=== PATIENT | female | born 1990 | race Caucasian/White ===

== ENCOUNTER 2023-08-06 15:51 | Observation (INO) ==
[2023-08-06] MEDS ORDERED: IOPAMIDOL 100 ML BOTTLE IV ONE (15:52)
[2023-08-06] MEDS: 0.9 % SODIUM CHLORIDE 1,000 ML IV ONE (18:08)
[2023-08-06] MEDS: HYDROmorphone 1 MG/ML SYRINGE IV ONE ×3 (18:08→20:45)
[2023-08-06] MEDS: ONDANSETRON 4 MG/2 ML VIAL IV ONE ×2 (18:08→19:13)
[2023-08-06 18:12] LABS: Basophils # (Auto) 0.03 K/mcL (0.00-0.30); Basophils % (Auto) 0.4 % (0.0-2.0); Eosinophils # (Auto) 0.07 K/mcL (0.00-0.70); Hematocrit 36.5 % (34.1-44.9); Hemoglobin 11.9 g/dL (11.2-15.7); Lymphocytes # (Auto) 1.61 K/mcL (1.50-4.80); Lymphocytes % (Auto) 22.5 % (15.5-49.0); Mean Cell Volume 87.3 fL (80.0-100.0); Mean Corpuscular HGB Conc 32.6 g/dL (31.0-36.0); Mean Platelet Volume 9.5 fL (8.8-12.5); Monocytes # (Auto) 0.57 K/mcL (0.10-0.90); Monocytes % (Auto) 7.9 % (1.0-12.0); Neutrophils % (Auto) 68.1 % (38.0-78.0); Platelet Count 369 K/mcL (140-440); RBC 4.18 M/mcL (3.59-5.38); Red Cell Distribution Width 12.6 % (11.5-14.5); WBC 7.2 K/mcL (4.5-11.0)
[2023-08-06 18:28] LABS: ALT/SGPT 17 U/L (<40); AST/SGOT 13 U/L (<32); Albumin 4.1 gm/dL (3.2-5.2); Albumin/Globulin Ratio 1.5 (1.0-2.3); Alkaline Phosphatase 96 U/L (39-117); Bilirubin,Total 0.3 mg/dL (0.1-1.0); Blood Urea Nitrogen 6 mg/dL (6-20); Carbon Dioxide 22 mmol/L (22-30); Chloride 104 mmol/L (96-108); Globulin 2.8 gm/dL (2.2-3.7); Glomerular Filtration Rate 120; Glucose 85 mg/dL (70-105)
[2023-08-06] MEDS ORDERED: PROMETHAZINE 25 MG/ML VIAL IV PRN (19:49)
[2023-08-06 20:04] LABS: Appearance,Urine Clear (Clear); Bilirubin,Urine Negative (Negative); Color,Urine Yellow; Culture Indicated,Urine No; Glucose,Urine (UA) Negative (Negative); Ketones,Urine Negative (Negative); Leukocyte Esterase,Urine Negative /uL (Negative); Nitrate,Urine Negative (Negative); PH,Urine 5.5 (5.0-9.0); Protein,Urine Negative (Negative); Urine Blood Negative ery/mcL (Negative); Urobilinogen,Urine Normal
[2023-08-06 21:09] LABS: Prothrombin Time 13.3 sec (11.9-14.5)
[2023-08-06] MEDS: ONDANSETRON 4 MG/2 ML VIAL IV PRN (21:57)
[2023-08-06] MEDS: 0.9 % SODIUM CHLORIDE 1,000 ML IV SCH (22:37)
[2023-08-06] MEDS: ACETAMINOPHEN 1,000 MG/100 ML BAG IV PRN (23:09)
[2023-08-06] MEDS: PIPERACILLIN SODIUM/TAZOBACTAM 3.375 GM in DEXTROSE 5% IN WATER 100 ML IV SCH (23:39)
[2023-08-07] MEDS: HYDROmorphone 1 MG/ML SYRINGE IV PRN (01:14)
[2023-08-07] MEDS: HYDROmorphone 1 MG/ML SYRINGE ONE ×2 (01:21→07:50)
[2023-08-07 05:31] LABS: Basophils # (Auto) 0.04 K/mcL (0.00-0.30); Basophils % (Auto) 0.8 % (0.0-2.0); Eosinophils # (Auto) 0.08 K/mcL (0.00-0.70); Eosinophils % (Auto) 1.6 % (0.0-7.0); Hematocrit 35.1 % (34.1-44.9); Hemoglobin 11.3 g/dL (11.2-15.7); Lymphocytes # (Auto) 1.54 K/mcL (1.50-4.80); Lymphocytes % (Auto) 30.7 % (15.5-49.0); Mean Cell Volume 90.9 fL (80.0-100.0); Mean Corpuscular HGB Conc 32.2 g/dL (31.0-36.0); Mean Platelet Volume 9.8 fL (8.8-12.5); Monocytes # (Auto) 0.42 K/mcL (0.10-0.90); Monocytes % (Auto) 8.4 % (1.0-12.0); Neutrophils % (Auto) 58.1 % (38.0-78.0); Platelet Count 333 K/mcL (140-440); RBC 3.86 M/mcL (3.59-5.38); Red Cell Distribution Width 12.5 % (11.5-14.5)
[2023-08-07 05:43] LABS: ALT/SGPT 7 U/L (<40); AST/SGOT 14 U/L (<32); Albumin 3.6 gm/dL (3.2-5.2); Albumin/Globulin Ratio 1.6 (1.0-2.3); Alkaline Phosphatase 85 U/L (39-117); Bilirubin,Direct < 0.2 mg/dL (0-0.3); Bilirubin,Total 0.3 mg/dL (0.1-1.0); Blood Urea Nitrogen 6 mg/dL (6-20); Calcium 8.1 mg/dL (8.6-10.4); Carbon Dioxide 21 mmol/L (22-30); Chloride 105 mmol/L (96-108); Globulin 2.3 gm/dL (2.2-3.7); Glomerular Filtration Rate 120; Glucose 97 mg/dL (70-105); Lactate Dehydrogenase 112 U/L (135-225); Phosphorous 3.3 mg/dL (2.5-4.5); Triglycerides 128 mg/dL (<150); Uric Acid 3.1 mg/dL (2.5-8.0)
[2023-08-07] MEDS: PANTOPRAZOLE 40 MG VIAL IV SCH (10:04)
[2023-08-07] MEDS ORDERED: fentaNYL 100 MCG/2 ML VIAL IV PRN (12:01)
[2023-08-07] MEDS ORDERED: NALOXONE HCL 0.4 MG/ML VIAL IV PRN ×2 (12:01→16:27)
[2023-08-07] MEDS ORDERED: IPRATROPIUM/ALBUTEROL 3 ML AMPUL.NEB NEB PRN ×2 (12:01→16:27)
[2023-08-07] MEDS ORDERED: ONDANSETRON 4 MG/2 ML VIAL IV PRN ×2 (12:01→16:27)
[2023-08-07] MEDS: PIPERACILLIN SODIUM/TAZOBACTAM 3.375 GM in DEXTROSE 5% IN WATER 100 ML IV SCH (12:08)
[2023-08-07] MEDS ORDERED: fentaNYL 100 MCG/2 ML VIAL ONE (15:33)
[2023-08-07] MEDS ORDERED: ROCURONIUM 10 MG/ML ML IV ONE (15:33)
[2023-08-07] MEDS ORDERED: PROPOFOL 200 MG/20 ML VIAL IV ONE (15:33)
[2023-08-07] MEDS ORDERED: ONDANSETRON 4 MG/2 ML VIAL ONE (15:33)
[2023-08-07] MEDS ORDERED: HYDROmorphone 0.5 MG/0.5 ML SYRINGE IV PRN (16:27)
[2023-08-07] MEDS ORDERED: SUGAMMADEX SODIUM 200 MG/2 ML VIAL IV ONE (16:41)
[2023-08-07] MEDS: fentaNYL 100 MCG/2 ML VIAL IV PRN (17:04)
[2023-08-07] MEDS: 0.9 % SODIUM CHLORIDE 1,000 ML IV SCH (17:53)
[2023-08-07] MEDS: LACTATED RINGERS 1,000 ML IV SCH ×2 (21:09→22:14)
[2023-08-08] MEDS: oxyCODONE IR 5 MG TABLET PO PRN (03:08)
[2023-08-08 06:06] LABS: Basophils # (Auto) 0.06 K/mcL (0.00-0.30); Eosinophils # (Auto) 0.19 K/mcL (0.00-0.70); Hematocrit 33.5 % (34.1-44.9); Hemoglobin 10.7 g/dL (11.2-15.7); Lymphocytes # (Auto) 1.18 K/mcL (1.50-4.80); Lymphocytes % (Auto) 18.9 % (15.5-49.0); Mean Cell Volume 90.3 fL (80.0-100.0); Mean Corpuscular HGB Conc 31.9 g/dL (31.0-36.0); Monocytes # (Auto) 0.46 K/mcL (0.10-0.90); Monocytes % (Auto) 7.4 % (1.0-12.0); Neutrophils % (Auto) 69.5 % (38.0-78.0); Platelet Count 325 K/mcL (140-440); RBC 3.71 M/mcL (3.59-5.38); Red Cell Distribution Width 12.3 % (11.5-14.5); WBC 6.2 K/mcL (4.5-11.0)
[2023-08-08 06:41] LABS: ALT/SGPT 8 U/L (<40); AST/SGOT 13 U/L (<32); Albumin 3.4 gm/dL (3.2-5.2); Albumin/Globulin Ratio 1.5 (1.0-2.3); Alkaline Phosphatase 94 U/L (39-117); Bilirubin,Direct < 0.2 mg/dL (0-0.3); Bilirubin,Total 0.2 mg/dL (0.1-1.0); Blood Urea Nitrogen 4 mg/dL (6-20); Carbon Dioxide 21 mmol/L (22-30); Chloride 108 mmol/L (96-108); Globulin 2.3 gm/dL (2.2-3.7); Glomerular Filtration Rate 127; Glucose 102 mg/dL (70-105); Lactate Dehydrogenase 120 U/L (135-225); Phosphorous 2.4 mg/dL (2.5-4.5); Triglycerides 129 mg/dL (<150); Uric Acid 2.4 mg/dL (2.5-8.0)
== END 2023-08-08 14:15 | disposition home or self-care (01) ==
LOC: ED 15:51 → MEDSUR 15:51
PROVIDERS: ADMIT Family Medicine Adult Medicine; ATTEND Family Medicine Adult Medicine
PROC: LAPAPPY (ICD-10-PCS; 2023-08-07 15:45)